=== PATIENT | male | born 1940 | race Caucasian/White ===

== ENCOUNTER 2017-10-07 05:25 | Inpatient (IN) | payer OTHER, BC, MEDICARE ==
[2017-10-07] MEDS ORDERED: LIDOCAINE 2% (SDV) 5 ML INJ (06:14)
[2017-10-07] MEDS ORDERED: NEOSTIGMINE 3 MG/3 ML SYRINGE (06:14)
[2017-10-07] MEDS ORDERED: PROPOFOL 20 ML (06:14)
[2017-10-07] MEDS ORDERED: FENTAnyl 50 MCG/ML VIAL ×2 (06:14→09:47)
[2017-10-07] MEDS ORDERED: GLYCOPYRROLATE 0.4 MG INJ (06:14)
[2017-10-07] MEDS ORDERED: ROCURONIUM 50 MG INJ ×2 (06:14→07:00)
[2017-10-07] MEDS ORDERED: MIDAZOLAM 1 MG/ML 2 ML INJ (06:14)
[2017-10-07] MEDS ORDERED: DEXAMETHASONE 4 MG/ML 1 ML INJ (06:21)
[2017-10-07] MEDS ORDERED: ONDANSETRON 4 MG INJ (06:21)
[2017-10-07] MEDS ORDERED: LABETALOL HCL 20MG INJ IV (06:30)
[2017-10-07] MEDS ORDERED: ATROPINE 1 MG/10 ML SYRINGE IV (06:30)
[2017-10-07] MEDS ORDERED: MIDAZOLAM 1 MG/ML 2 ML INJ IV (06:30)
[2017-10-07] MEDS ORDERED: FENTAnyl 50 MCG/ML VIAL IV (06:30)
[2017-10-07] MEDS ORDERED: MEPERIDINE 25 MG INJ IV (06:30)
[2017-10-07] MEDS ORDERED: EPHEDrine SULFATE 50 MG/5 ML SYG IV (06:30)
[2017-10-07] MEDS ORDERED: hydrALAzine 20 MG INJ IV (06:30)
[2017-10-07] MEDS: CEFAZOLIN 2 GM/50 ML (PMX) 50 ML IVPB (07:02)
[2017-10-07] MEDS ORDERED: hydrALAzine 20 MG INJ (07:35)
[2017-10-07] MEDS: BUPIVACAINE 0.25% (MPF) 30 ML INJ (08:57)
[2017-10-07] MEDS: GELATIN SIZE 100 SPONGE (08:57)
[2017-10-07] MEDS: POLYMYXIN/BACITRACIN 1L IRRIG (08:58)
[2017-10-07] MEDS: THROMBIN 5000 UNIT VIAL (08:58)
[2017-10-07] MEDS: ONDANSETRON 4 MG INJ IV (10:59)
[2017-10-07] MEDS: FENTAnyl 50 MCG/ML VIAL IV ×2 (10:59→11:04)
[2017-10-07] MEDS ORDERED: HYDROCODONE/APAP (5/325) TAB PO (11:00)
[2017-10-07] MEDS ORDERED: NACL 0.9% 3 ML SYG IV (11:00)
[2017-10-07] MEDS ORDERED: NALOXONE (0.4 MG/ML) INJ IV (11:00)
[2017-10-07] MEDS ORDERED: DIAZEPAM 5 MG TAB PO (11:00)
[2017-10-07] MEDS ORDERED: PROCHLORPERAZINE 10 MG TAB PO (11:00)
[2017-10-07] MEDS ORDERED: ACETAMINOPHEN 325 MG TAB PO (11:00)
[2017-10-07] MEDS ORDERED: BETHANECHOL 25 MG TAB PO (11:00)
[2017-10-07] MEDS ORDERED: DIAZEPAM 5 MG/ML SYG IM (11:00)
[2017-10-07] MEDS ORDERED: DIPHENHYDRAMINE 50 MG CAP PO (11:00)
[2017-10-07] MEDS ORDERED: CEPASTAT LOZENGE MT (11:00)
[2017-10-07] MEDS: HYDROmorphONE 0.2 MG/ML PCA IV ×2 (11:08→19:07)
[2017-10-07] MEDS: DIPHENHYDRAMINE 50 MG INJ IV (11:12)
[2017-10-07] MEDS: DEXTROSE 5%-0.45% NACL 1,000 ML IV ×2 (13:49→21:36)
[2017-10-07] MEDS: LACTATED RINGER'S 1,000 ML IV* (13:49)
[2017-10-07] MEDS: CEFAZOLIN 1 GM/50 ML (PMX) 50 ML IVPB ×2 (13:50→17:33)
[2017-10-07] MEDS ORDERED: RIZATRIPTAN BENZOATE 10 MG PO (14:00)
[2017-10-07] MEDS ORDERED: ZOLPIDEM 5 MG TAB PO (14:00)
[2017-10-07] MEDS: PANTOPRAZOLE (EC) 40 MG TAB PO (17:33)
[2017-10-07] MEDS: ASCORBIC ACID 500 MG TAB PO (20:17)
[2017-10-07] MEDS ORDERED: RANITIDINE 150 MG TAB PO (21:00)
[2017-10-07] MEDS: EZETIMIBE 10 MG TAB PO (21:35)
[2017-10-07] MEDS: LORATADINE 10 MG TAB PO (21:36)
[2017-10-07] MEDS: TAMSULOSIN (SR) 0.4 MG CAP PO (21:36)
[2017-10-07] MEDS: AL HYDROX/MG HYDROX/SIMETH 30 ML CUP PO (21:49)
[2017-10-08] MEDS: PANTOPRAZOLE (EC) 40 MG TAB PO (05:29)
[2017-10-08] MEDS: CEFAZOLIN 1 GM/50 ML (PMX) 50 ML IVPB ×2 (05:29)
[2017-10-08] MEDS: DEXTROSE 5%-0.45% NACL 1,000 ML IV (06:46)
[2017-10-08] MEDS: [UNRECOGNIZED DRUG - REMARK] XX (07:33)
[2017-10-08 07:40] LABS: HEMATOCRIT 30.3 % (42.0-52.0); HEMOGLOBIN 10.2 g/dl (14.0-18.0)
[2017-10-08 07:54] LABS: ANION GAP 12 (8-16); BLOOD UREA NITROGEN 11 mg/dl (7-20); CALCIUM 8.5 mg/dl (8.4-10.2); CARBON DIOXIDE 26 mmol/L (21-31); CHLORIDE 104 mmol/L (97-110); CREATININE 0.65 mg/dl (0.61-1.24); GLUCOSE 131 mg/dl (70-220); SODIUM 138 mmol/L (135-144)
[2017-10-08] MEDS ORDERED: BETHANECHOL 25 MG TAB PO (08:00)
[2017-10-08] MEDS: ALLOPURINOL 300 MG TAB PO (08:59)
[2017-10-08] MEDS: DOCUSATE SODIUM 100 MG CAP PO ×3 (09:00→20:52)
[2017-10-08] MEDS: LOSARTAN 50 MG TAB PO (09:00)
[2017-10-08] MEDS ORDERED: PANTOPRAZOLE (EC) 40 MG TAB PO (09:00)
[2017-10-08] MEDS: FERROUS SULFATE (EC) 325 MG TAB PO ×3 (09:00→20:52)
[2017-10-08] MEDS: DUTASTERIDE 0.5 MG CAP PO (09:01)
[2017-10-08] MEDS: METOPROLOL (XL) 100 MG TAB PO (09:05)
[2017-10-08] MEDS: HYDROCODONE/APAP (5/325) TAB PO ×4 (10:08→23:38)
[2017-10-08 12:18] LABS: ADD UMIC YES; UR ASCORBIC ACID NEGATIVE (NEGATIVE); UR BACTERIA FEW /HPF (NONE SEEN); UR BILIRUBIN (Dip) NEGATIVE (NEGATIVE); UR BLOOD (Dip) 3+ mg/dL (NEGATIVE); UR CLARITY CLEAR (CLEAR); UR COLOR STRAW (YELLOW); UR GLUCOSE (Dip) NEGATIVE (NEGATIVE); UR KETONES (Dip) NEGATIVE (NEGATIVE); UR LEUKOCYTE ESTERASE (Dip) NEGATIVE Leu/ul (NEGATIVE); UR NITRITE (Dip) NEGATIVE (NEGATIVE); UR RBC 2 /HPF (0-5); UR SPECIFIC GRAVITY (Dip) 1.004 (1.003-1.030); UR TOTAL PROTEIN (Dip) NEGATIVE (NEGATIVE); UR UROBILINOGEN (Dip) NEGATIVE (NEGATIVE); UR WBC 2 /HPF (0-5)
[2017-10-08] MEDS: TAMSULOSIN (SR) 0.4 MG CAP PO (20:52)
[2017-10-08] MEDS: LORATADINE 10 MG TAB PO (20:52)
[2017-10-08] MEDS: EZETIMIBE 10 MG TAB PO (21:28)
[2017-10-08] MEDS: AL HYDROX/MG HYDROX/SIMETH 30 ML CUP PO (21:30)
[2017-10-09] MEDS: HYDROCODONE/APAP (5/325) TAB PO (05:15)
[2017-10-09] MEDS: PANTOPRAZOLE (EC) 40 MG TAB PO (05:18)
[2017-10-09] MEDS: ONDANSETRON 4 MG INJ IV ×2 (05:18→11:04)
[2017-10-09] MEDS: BISACODYL 10 MG SUPP PR (08:11)
[2017-10-09] MEDS: ALLOPURINOL 300 MG TAB PO (08:48)
[2017-10-09] MEDS: DOCUSATE SODIUM 100 MG CAP PO ×2 (08:48→20:59)
[2017-10-09] MEDS: FERROUS SULFATE (EC) 325 MG TAB PO (08:49)
[2017-10-09] MEDS: DUTASTERIDE 0.5 MG CAP PO (08:49)
[2017-10-09] MEDS: LOSARTAN 50 MG TAB PO (08:49)
[2017-10-09] MEDS: METOPROLOL (XL) 100 MG TAB PO (08:49)
[2017-10-09] MEDS: NA PHOSPHATE/BIPHOS 133 ML ENEMA PR (09:56)
[2017-10-09 11:16] LABS: ADD MAN DIFF? NO
[2017-10-09 11:42] LABS: ALANINE AMINOTRANSFERASE 93 IU/L (13-69); ALBUMIN 3.2 g/dl (3.3-4.9); ALBUMIN/GLOBULIN RATIO 1.14; ALKALINE PHOSPHATASE 109 IU/L (42-121); ANION GAP 10 (8-16); ASPARTATE AMINO TRANSFERASE 88 IU/L (15-46); BILIRUBIN,INDIRECT 0.5 mg/dl (0-1.1); BILIRUBIN,TOTAL 0.5 mg/dl (0.2-1.3); BLOOD UREA NITROGEN 14 mg/dl (7-20); CALCIUM 9.1 mg/dl (8.4-10.2); CARBON DIOXIDE 30 mmol/L (21-31); CHLORIDE 101 mmol/L (97-110); CREATININE 0.85 mg/dl (0.61-1.24); GLUCOSE 127 mg/dl (70-220); POTASSIUM 4.1 mmol/L (3.5-5.1); SODIUM 137 mmol/L (135-144)
[2017-10-09 11:57] LABS: WHITE BLOOD COUNT 12.9 10^3/ul (4.8-10.8)
[2017-10-09 11:57] LABS: BASOPHILS % 0.3 % (0.0-2.0); EOSINOPHILS # 0.1 10^3/ul (0.0-0.5); HEMATOCRIT 34.5 % (42.0-52.0); HEMOGLOBIN 11.4 g/dl (14.0-18.0); LYMPHOCYTES # 2.1 10^3/ul (0.8-2.9); LYMPHOCYTES % 16.1 % (15.0-51.0); MEAN CORPUSCULAR HEMOGLOBIN 31.2 pg (29.0-33.0); MEAN CORPUSCULAR VOLUME 94.5 fl (82.0-101.0); MEAN PLATELET VOLUME 9.2 fl (7.4-10.4); MONOCYTE # 1.4 10^3/ul (0.3-0.9); MONOCYTES % 10.9 % (0.0-11.0); NEUTROPHIL # 9.2 10^3/ul (1.6-7.5); NEUTROPHILS % 71.2 % (39.0-77.0); PLATELET COUNT 234 10^3/UL (140-415); RED BLOOD COUNT 3.65 10^6/ul (4.70-6.10); RED CELL DISTRIBUTION WIDTH 15.1 % (11.5-14.5)
[2017-10-09] MEDS: D5W-0.45 NACL + KCL 20 MEQ 1,000 ML IV (14:24)
[2017-10-09] MEDS: TRIMETHOBENZAMIDE 100 MG/ML VIAL IM (14:42)
[2017-10-09] MEDS: BARIUM SULF 2% 450 ML BTL (BERRY SMOOTHIE) PO (20:30)
[2017-10-09] MEDS: LORATADINE 10 MG TAB PO (20:58)
[2017-10-09] MEDS: TAMSULOSIN (SR) 0.4 MG CAP PO (20:59)
[2017-10-09] MEDS: EZETIMIBE 10 MG TAB PO (20:59)
[2017-10-10] MEDS: ACETAMINOPHEN 325 MG TAB PO (00:55)
[2017-10-10] MEDS: ZOLPIDEM 5 MG TAB PO (00:55)
[2017-10-10] MEDS: AL HYDROX/MG HYDROX/SIMETH 30 ML CUP PO (02:35)
[2017-10-10] MEDS: D5W-0.45 NACL + KCL 20 MEQ 1,000 ML IV (04:13)
[2017-10-10] MEDS: PANTOPRAZOLE (EC) 40 MG TAB PO (04:18)
[2017-10-10] MEDS: ALLOPURINOL 300 MG TAB PO (08:59)
[2017-10-10] MEDS: DUTASTERIDE 0.5 MG CAP PO (08:59)
[2017-10-10] MEDS: DOCUSATE SODIUM 100 MG CAP PO (08:59)
[2017-10-10] MEDS: LOSARTAN 50 MG TAB PO (09:00)
[2017-10-10] MEDS: METOPROLOL (XL) 100 MG TAB PO (09:00)
[2017-10-10] MEDS: HYDROCODONE/APAP (5/325) TAB PO (09:32)
[2017-10-10 11:58] LABS: ADD MAN DIFF? NO
[2017-10-10 12:09] LABS: WHITE BLOOD COUNT 10.4 10^3/ul (4.8-10.8)
[2017-10-10 12:09] LABS: BASOPHILS % 0.2 % (0.0-2.0); EOSINOPHILS # 0.2 10^3/ul (0.0-0.5); EOSINOPHILS % 1.8 % (0.0-7.0); HEMATOCRIT 31.2 % (42.0-52.0); HEMOGLOBIN 10.3 g/dl (14.0-18.0); LYMPHOCYTES # 1.5 10^3/ul (0.8-2.9); LYMPHOCYTES % 14.5 % (15.0-51.0); MEAN CORPUSCULAR HEMOGLOBIN 31.2 pg (29.0-33.0); MEAN CORPUSCULAR VOLUME 94.5 fl (82.0-101.0); MONOCYTES % 9.7 % (0.0-11.0); NEUTROPHIL # 7.6 10^3/ul (1.6-7.5); NEUTROPHILS % 73.3 % (39.0-77.0); PLATELET COUNT 208 10^3/UL (140-415); RED CELL DISTRIBUTION WIDTH 14.6 % (11.5-14.5)
[2017-10-10 12:22] LABS: CALCIUM 8.5 mg/dl (8.4-10.2)
[2017-10-10 12:24] LABS: ALANINE AMINOTRANSFERASE 64 IU/L (13-69); ALBUMIN 3.1 g/dl (3.3-4.9); ALBUMIN/GLOBULIN RATIO 1.29; ALKALINE PHOSPHATASE 108 IU/L (42-121); ANION GAP 9 (8-16); ASPARTATE AMINO TRANSFERASE 50 IU/L (15-46); BILIRUBIN,INDIRECT 0.4 mg/dl (0-1.1); BILIRUBIN,TOTAL 0.4 mg/dl (0.2-1.3); BLOOD UREA NITROGEN 10 mg/dl (7-20); CALCIUM 8.5 mg/dl (8.4-10.2); CARBON DIOXIDE 28 mmol/L (21-31); CHLORIDE 105 mmol/L (97-110); CREATININE 0.68 mg/dl (0.61-1.24); GLUCOSE 123 mg/dl (70-220); SODIUM 138 mmol/L (135-144); TOTAL PROTEIN 5.5 g/dl (6.1-8.1)
[2017-10-10 12:52] LABS: CARCINOEMBRYONIC ANTIGEN 0.5 ng/ml (0.0-5.0)
== END 2017-10-10 15:24 | disposition home or self-care (01) | DRG 516 ==
LOC: REC 05:25 → MS1 10-08 12:11 → ICU 13:15
PROC: 01NB0ZZ Release Lumbar Nerve, Open Approach (ICD-10-PCS; principal; 2017-10-07 07:00)
DX: M48.061 Spinal stenosis, lumbar region without neurogenic claudication (principal); K56.7 Ileus, unspecified; I10 Essential (primary) hypertension; M54.16 Radiculopathy, lumbar region; M48.07 Spinal stenosis, lumbosacral region; K21.9 Gastro-esophageal reflux disease without esophagitis; E78.5 Hyperlipidemia, unspecified; N40.0 Benign prostatic hyperplasia without lower urinary tract symptoms
CPT/HCPCS: 72020; 74018; 74019; 74176; 80048; 80053; 81001; 82310; 82378; 85014; 85018; 85025; 86850; 86870; 86900; 86901; 86902; 86920; 87081; 87086; 97110; 97116; 97163; 97530